=== PATIENT | female | born 1975 | race Caucasian/White ===

== ENCOUNTER 2020-12-31 06:39 | Inpatient (IN) | payer MEDICAID, SELFPAY ==
[~2020-12-31] VITALS: Ht 162.6 cm; Wt 72.6 kg
[2020-12-31 06:44] VITALS: BP 123/79
--- NOTE | 2020-12-31 06:51 | NUR ---
pt ambulated to restroom with steady gait.
--- NOTE | 2020-12-31 06:57 | NUR ---
AMBULATED TO BED 3
--- NOTE | 2020-12-31 07:30 | NUR ---
RECEIVED PATIENT IN BED 2 ACCOMPANIED BY DAUGHTER WITH C/O BREAST PAIN S/P BREAST BIOPSY , DR DUPONT AT BEDSIDE FOR EXAM AND EVAL, PALE PINK TENDER AREA DIRECTLY BELOW RIGHT AREOLA. ORDERS RECEIVED.
[2020-12-31] MEDS ORDERED: MORPHINE SULFATE 4 MG/ML SYR IM ONE (07:35)
--- NOTE | 2020-12-31 07:48 | NUR ---
Ultrasound at bedside.
--- NOTE | 2020-12-31 08:30 | NUR ---
RESTING QUIETLY WITH EYES CLOSED, APPEARS COMFORTABLE, NOT AWAKENED AT THIS TIME.
--- NOTE | 2020-12-31 10:11 | NUR ---
AWAKE, REPORTING PAIN RELIEF. AWAITING RESULTS.
[2020-12-31] MEDS ORDERED: NAPR-54 PO (10:28)
[2020-12-31] MEDS ORDERED: ACET-8386 PO (10:28)
[2020-12-31] MEDS ORDERED: NAFCILLIN 1,000 MG in DEXTROSE 5% 50 ML IV STA (11:01)
[2020-12-31] MEDS ORDERED: AMPICILLIN/SULBACTAM 1.5 GM in NACL 0.9% 50 ML IV SCH (11:05)
[2020-12-31] MEDS ORDERED: ZOLPIDEM 5 MG TAB PO PRN (11:05)
[2020-12-31] MEDS ORDERED: ONDANSETRON 4 MG/2 ML VIAL IVP PRN ×2 (11:05→16:45)
[2020-12-31] MEDS ORDERED: DOCUSATE SODIUM 100 MG GELCAP PO PRN (11:05)
[2020-12-31] MEDS ORDERED: ACETAMINOPHEN 325 MG TAB PO PRN (11:05)
[2020-12-31] MEDS ORDERED: HYDROcodone/APAP 5/325 MG 1 TAB TAB PO PRN (11:05)
[2020-12-31] MEDS ORDERED: LORazepam 2 MG/ML VIAL IM/IVP PRN (11:05)
--- NOTE | 2020-12-31 11:52 | NUR ---
OR CALLED, PLAN IS FOR EXCISION OF LUMP TO RIGHT BREAST AT 1300. PATIENT IS NPO, IV ACCESS TO RT AC PLACED WITH #22 ANGIO, LABS DRAWN AND SENT, COVID 19 SHAYNE SWAB OBTAINED AND SENT WELL, UP TO BR, URINE SAMPLE PROVIDED. URINE HCG IS NEGATIVE. VITAL SIGNS ARE STABLE, DAUGHTER IS AT SIDE WHO IS TRANSLATING, REPORTS THAT PATIENT VERBALIZES UNDERSTANDING OF PLAN OF CARE.
[2020-12-31 11:54] LABS: BASOPHILS % (AUTO) 0.4 % (0.0-2.0); EOSINOPHILS # (AUTO) 0.3 K/uL (0-0.4); EOSINOPHILS % (AUTO) 5.6 % (0.0-4.0); HEMATOCRIT 37.7 % (36-48); HEMOGLOBIN 12.3 g/dL (12.0-16.0); LYMPHOCYTES # (AUTO) 2.3 K/uL (2.5-16.5); LYMPHOCYTES % (AUTO) 42.9 % (20.5-51.1); MEAN CORPUSCULAR HEMOGLOBIN 26 pg (27-31); MEAN CORPUSCULAR HGB CONC 33 g/dL (33-37); MEAN CORPUSCULAR VOLUME 80.4 fL (80-94); MONOCYTES # (AUTO) 0.2 K/uL (0.8-1.0); MONOCYTES % (AUTO) 4.5 % (1.7-9.3); NEUTROPHILS # (AUTO) 2.5 K/uL (1.8-7.7); NEUTROPHILS % (AUTO) 46.6 % (42.2-75.2); PLATELET COUNT (AUTO) 308 K/uL (140-450); RED BLOOD CELL COUNT(AUTO) 4.68 MIL/uL (4.20-5.40); RED CELL DISTRIBUTION WIDTH 30.2 % (11.6-13.7); WHITE BLOOD COUNT (AUTO) 5.5 K/uL (4.8-10.8)
[2020-12-31 11:56] LABS: APPEARANCE,URINE CLEAR (CLEAR); BILIRUBIN,URINE NEGATIVE (NEGATIVE); BLOOD, URINE NEGATIVE (NEGATIVE); COLOR,URINE YELLOW (YELLOW); LEUKOCYTE ESTERASE ,URINE NEGATIVE (NEGATIVE); NITRITE, URINE NEGATIVE (NEGATIVE); UGLUCOSE NEGATIVE (NEGATIVE)
[2020-12-31 12:14] LABS: BARBITURATE, URINE NEGATIVE ng/ml (NEG <=200); BENZODIAZEPINE, URINE NEGATIVE ng/mL (NEG <=200); CANNABINOID, URINE NEGATIVE ng/mL (NEG <=50); COCAINE, URINE NEGATIVE ng/mL (NEG <=300); OPIATE, URINE POSITIVE ng/mL (NEG <=2000); PHENCYCLIDINE SCREEN,URINE NEGATIVE ng/mL (NEG <=25)
[2020-12-31 12:15] LABS: PROTHROMBIN TIME 9.9 secs (10.8-13.4)
[2020-12-31 12:20] LABS: ANION GAP 11.6 (8-16); CARBON DIOXIDE 28.4 mmol/L (21-32); CREATININE 0.6 mg/dL (0.6-1.3); TOTAL BILIRUBIN 0.3 mg/dL (0.0-1.0)
[2020-12-31 12:27] LABS: CHOL/HDL RATIO 4.9 (1-4.5); FREE T4 (FREE THYROXINE) 0.82 ng/dL (0.76-1.46); MAGNESIUM 2.1 mg/dL (1.8-2.4); PHOSPHORUS 4.4 mg/dL (2.5-4.9); THYROID STIMULATING HORMONE 6.06 uIU/mL (0.34-3.74)
[2020-12-31] MEDS ORDERED: LIDOCAINE 1% 500 MG/50 ML VIAL ONE (13:36)
[2020-12-31] MEDS ORDERED: BUPIVACAINE-MPF/EPI 0.25% 30 ML VIAL INJ ONE (13:36)
--- NOTE | 2020-12-31 13:58 | NUR ---
RESTING AWAITING TRANSPORT TO OR
--- NOTE | 2020-12-31 14:53 | NUR ---
RECEIVED PT FROM ER PATIENT ALERT,ORIENTED X4, ESTONIAN SPEAKING, UNDERSTAND A LITTLE BIT OF GREEK, DAUGHTER AT BEDSIDE,SKIN WARM TO TOUCH RESP. EVEN AND UNLABORED, NOTED LUMP ON RIGHT BREAST CLOSE TO THE NIPPLE,SKIN INTACT,NO DRAINAGE NOTED,VITAL SIGN WITHIN NORMAL LIMIT, ORIENT TO ENVIRONMENT,CALL LIGHT WITHIN EASY REACH
[2020-12-31 15:18] VITALS: BP 132/84
--- NOTE | 2020-12-31 15:30 | NUR ---
TO OR AT THIS TIME.
[2020-12-31] MEDS ORDERED: fentaNYL citrate 0.05 MG/ML VIAL ONE (15:50)
[2020-12-31] MEDS ORDERED: SEVOFLURANE 250 ML BTL INH ONE (15:55)
[2020-12-31] MEDS: NAFCILLIN 1,000 MG in DEXTROSE 5% 50 ML IV SCH ×2 (16:00→20:36)
[2020-12-31] MEDS ORDERED: LACTATED RINGERS 1,000 ML IV SCH (16:45)
[2020-12-31] MEDS: MEPERIDINE 25 MG/ML SYR IVP PRN ×2 (16:45→17:00)
[2020-12-31] MEDS ORDERED: diphenhydrAMINE 50 MG/ML VIAL IVP PRN (16:45)
[2020-12-31] MEDS ORDERED: fentaNYL citrate 0.05 MG/ML VIAL IVP PRN (16:45)
[2020-12-31] MEDS ORDERED: oxyCODONE/APAP 5/325 MG 1 TAB TAB PO PRN (16:45)
[2020-12-31] MEDS ORDERED: MEPERIDINE 25 MG/ML SYR ONE (16:49)
[2020-12-31] MEDS ORDERED: ROCURONIUM 50 MG/5 ML VIAL IV ONE (16:59)
[2020-12-31] MEDS ORDERED: LIDOCAINE MPF 2% 100 MG/5 ML VIAL INJ ONE (16:59)
[2020-12-31] MEDS ORDERED: PROPOFOL 200 MG/20 ML VIAL IV ONE (16:59)
[2020-12-31] MEDS ORDERED: GLYCOPYRROLATE 0.2 MG/ML VIAL ONE (16:59)
[2020-12-31] MEDS ORDERED: METOCLOPRAMIDE 10 MG/2 ML INJ VIAL ONE (17:00)
[2020-12-31] MEDS ORDERED: DEXAMETHASONE 4 MG/ML VIAL ONE (17:00)
[2020-12-31] MEDS ORDERED: NEOSTIGMINE 1:1000 10 MG/10 ML VIAL ONE (17:00)
[2020-12-31] MEDS ORDERED: ONDANSETRON 4 MG/2 ML VIAL ONE (17:00)
--- NOTE | 2020-12-31 17:12 | NUR ---
PATIENT HAS BEEN SCREENED AND CATEGORIZED LOW NUTRITION RISK. PATIENT WILL BE SEEN WITHIN 7 DAYS OF ADMISSION. 01/05/[address]
--- NOTE | 2020-12-31 17:35 | NUR ---
PATIENT RETURN TO UNIT FOR RIGHT BREAST BIOPSY. VS WITHIN NORMAL LIMITS. PATIENT SLEEPING BREATHING EVEN AND UNLABORED.
--- NOTE | 2020-12-31 18:00 | NUR ---
PATIENT AWAKE. NO ACUTE DISTRESS NOTED. VS WITHIN NORMAL LIMITS. ALL SAFETY MEASURES IN PLACE. WILL CONTINUE TO MONITOR.
[2020-12-31] MEDS: MORPHINE SULFATE 2 MG/ML SYR IVP PRN ×2 (18:31→22:30)
--- NOTE | 2020-12-31 19:20 | NUR ---
ENDORSED REPORT TO CROSSWORD PUZZLE MAKER NURSE FOR CONTINUITY OF CARE. PATIENT STABLE. FAMILY AT BEDSIDE. ALL SAFETY MEASURES IN PLACE.
--- NOTE | 2020-12-31 19:21 | NUR ---
RECEIVED REPORT FROM DAY SHIFT NURSE. PT IN BED RESTING WITH FAMILY AT BEDSIDE. RESPIRATIONS EVEN AND UNLABORED TO ROOM AIR, ABDOMEN SOFT AND NON-TENDER. SKIN IS WARM AND DRY. PT S/P BREAST BIOPSY, DRESSING IN PLACE. PT STATES TOLERABLE PAIN AT THIS TIME. IV ACCESS ON RIGHT AC G20 PATENT AND INTACT. IVF INFUSING WELL. CALL LIGHT WITHIN REACH. WILL CONTINUE TO MONITOR.
[2020-12-31 20:00] VITALS: BP 114/67
[2020-12-31] MEDS: NACL 0.9% 1,000 ML IV SCH ×2 (20:36→20:47)
--- NOTE | 2020-12-31 20:36 | NUR ---
VS STABLE. SCHEDULED MEDS GIVEN ORDERED. PT VERBALIZED TOLERABLE PAIN AT THIS TIME. PT REQUESTED SOMETHING TO EAT, SANDWICH GIVEN. WILL CONTINUE TO MONITOR.
--- NOTE | 2020-12-31 22:30 | NUR ---
PT COMPLAINING OF R BREAST PAIN 01/04. PRN MORPHINE GIVEN ORDERED.
[2021-01-01] MEDS: NAFCILLIN 1,000 MG in DEXTROSE 5% 50 ML IV SCH ×4 (00:10→12:15)
--- NOTE | 2021-01-01 00:16 | NUR ---
ASLEEP. VISIBLE CHEST RISE AND FALL NOTED. NO S/SX OF PAIN OR DISCOMFORT NOTED. SAFETY MEASURES IN PLACE. CALL LIGHT WITHIN REACH. WILL CONTINUE TO MONITOR.
--- NOTE | 2021-01-01 02:11 | NUR ---
ROUNDS MADE. PT ASLEEP. NO S/SX OF PAIN OR DISCOMFORT NOTED. IVF INFUSING WELL. CALL LIGHT WITHIN REACH. WILL CONTINUE TO MONITOR.
[2021-01-01 04:00] VITALS: BP 124/59
--- NOTE | 2021-01-01 04:16 | NUR ---
VS STABLE. PT VERBALIZED TOLERABLE PAIN AT THIS TIME. NO REQUESTS MADE. CALL LIGHT WITHIN REACH. WILL CONTINUE TO MONITOR.
[2021-01-01 07:04] LABS: BASOPHILS % (AUTO) 0.2 % (0.0-2.0); EOSINOPHILS % (AUTO) 0.7 % (0.0-4.0); HEMATOCRIT 34.8 % (36-48); HEMOGLOBIN 11.7 g/dL (12.0-16.0); LYMPHOCYTES # (AUTO) 1.8 K/uL (2.5-16.5); LYMPHOCYTES % (AUTO) 27.8 % (20.5-51.1); MEAN CORPUSCULAR HEMOGLOBIN 27 pg (27-31); MEAN CORPUSCULAR HGB CONC 34 g/dL (33-37); MEAN CORPUSCULAR VOLUME 79.1 fL (80-94); MONOCYTES # (AUTO) 0.3 K/uL (0.8-1.0); MONOCYTES % (AUTO) 4.6 % (1.7-9.3); NEUTROPHILS # (AUTO) 4.3 K/uL (1.8-7.7); NEUTROPHILS % (AUTO) 66.7 % (42.2-75.2); PLATELET COUNT (AUTO) 309 K/uL (140-450); RED CELL DISTRIBUTION WIDTH 30.5 % (11.6-13.7); WHITE BLOOD COUNT (AUTO) 6.5 K/uL (4.8-10.8)
[2021-01-01] MEDS: NACL 0.9% 1,000 ML IV SCH (07:05)
[2021-01-01 07:14] LABS: CARBON DIOXIDE 28.2 mmol/L (21-32); CREATININE 0.6 mg/dL (0.6-1.3); POTASSIUM 4.2 mmol/L (3.5-5.1)
[2021-01-01 07:29] LABS: PHOSPHORUS 4.8 mg/dL (2.5-4.9)
--- NOTE | 2021-01-01 07:29 | NUR ---
ENDORSED TO DAY SHIFT NURSE FOR CONTINUITY OF CARE
--- NOTE | 2021-01-01 07:30 | NUR ---
RECEIVED REPORT FROM NIGHT NURSE. INTRODUCED MYSELF TO PT NURSE OF THE DAY. PT IS STABLE. SAFETY PRECAUTIONS ARE IN PLACE. CALL LIGHT IS WITHIN REACH. WILL CONTINUE PLAN OF CARE.
[2021-01-01 08:00] VITALS: BP 124/66
--- NOTE | 2021-01-01 08:54 | NUR ---
ADMINISTERED SCHEDULED MEDICATIONS PER MD ORDER. EXPLAINED MEDICATIONS MOA AND SIDE EFFECTS TO PT AND FAMILY. PT VERBALIZED UNDERSTANDING OF MEDICATIONS AND HAD NO QUESTIONS. PT IS EATING BREAKFAST WITH FAMILY AT BEDSIDE. SAFETY PRECAUTIONS ARE IN PLACE. CALL LIGHT IS WITHIN REACH. WILL CONTINUE TO MONITOR.
[2021-01-01] MEDS ORDERED: CEPH250C16 PO (11:47)
[2021-01-01 12:00] VITALS: BP 124/66
--- NOTE | 2021-01-01 12:15 | NUR ---
ADMINISTERED SCHEDULED MEDICATIONS PER MD ORDER. EDUCATED PT AND FAMILY ON MEDICATIONS MOA AND SIDE EFFECTS. PT AND FAMILY VERBALIZED UNDERSTANDING. PT IS RESTING COMFORTABLY. CALL LIGHT IS WITHIN REACH. WILL CONTINUE TO MONITOR.
[2021-01-01 13:06] VITALS: BP 123/63
--- NOTE | 2021-01-01 15:00 | NUR ---
PT WAS DISCHARGED. PT AND FAMILY WERE EDUCATED ON DISCHARGE INSTRUCTIONS. THEY WERE INSTRUCTED TO FOLLOW UP WITH PCP WITH 7 DAYS AFTER DISCHARGE. PT AND FAMILY WAS EDUCATED ON MEDICATIONS. PT AND FAMILY WERE EDUCATED ON WOUND CARE. PT AND FAMILY VERBALIZED UNDERSTANDING OF DISCHARGE INSTRUCTIONS. PT AND FAMILY WERE EDUCATED ON WHEN TO SEEK MEDICAL HELP.WRISTBAND WAS REMOVED. IV CATHETER WAS REMOVED AND CATHETER WAS INTACT. APPLIED A 2X2 GAUZE TO STOP BLEEDING. PT WAS ABLE TO DRESS HERSELF. PT WAS ESCORTED OUT TO THE FRONT LOBBY WITH HER DAUGHTER AND MOTHER IN LAW IN A WHEELCHAIR. A PRIVATE VEHICLE WAS PROVIDED FOR PT.
== END 2021-01-01 14:45 | disposition home or self-care (01) | DRG 385 ==
LOC: MED 06:39 → MMU 11:04 → MTU 15:24
PROVIDERS: ADMIT Family Medicine; ATTEND Family Medicine
PROC: 0JB60ZZ Excision of Chest Subcutaneous Tissue and Fascia, Open Approach (ICD-10-PCS; principal; 2020-12-31 15:05)
DX: N61.1 Abscess of the breast and nipple (principal); D64.9 Anemia, unspecified; Z20.822 Contact with and (suspected) exposure to COVID-19; N61.21 Granulomatous mastitis, right breast
CPT/HCPCS: 36415; 71045; 76641; 80048; 80053; 80305; 81003; 82150; 83036; 83690; 83735; 83880; 84100; 84439; 84443; 84484; 85025; 85610; 85730; 87070; 87075; 87081; 87205; 96365; 96372; 99285; J1100; J2001; J2175; J2270; J2405; J2704; J2710; J2765; J3010; J3490; J7060